=== PATIENT | female | born 1975 | race Caucasian/White ===

== ENCOUNTER 2017-03-15 12:51 | Inpatient (IN) | payer BC ==
[~2017-03-15] VITALS: Ht 172.7 cm; Wt 67.1 kg
[2017-03-15 13:45] VITALS: BP 134/74
--- NOTE | 2017-03-15 14:00 | NUR ---
42 year old FEMALE admitted to room # 403-2 for stabilization. Reports an addiction to HEROIN last used 24 hours prior to admission. Compliant with admission procedure. Patient denies any anxiety, but is unable to sit still, taps toes to floor continuously, looks about room, unable to focus eyes on nurse during interview. See assessment forms for additional information about patient status.
[2017-03-15 14:53] LABS: BASO % 0.5 % (0.0-1.0); EOS # 0.1 10*3/uL (0.0-0.4); EOS % 0.6 % (1.0-4.0); HEMOGLOBIN 13.7 g/dl (12.0-16.0); LYMPH # 3.1 10*3/uL (1.3-4.4); LYMPH % 40.5 % (27.0-41.0); MEAN CELL VOLUME 91.7 fl (81.0-99.0); MEAN CORPUSCULAR HGB 30.6 pg (27.0-31.0); MEAN CORPUSCULAR HGB CONC 33.4 g/dl (33.0-37.0); MEAN PLATELET VOLUME 10.1 fl (9.6-12.3); MONO # 0.4 10*3/uL (0.1-1.0); MONO % 4.9 % (3.0-9.0); NEUT # 4.1 10*3/uL (2.3-7.9); NEUT % 53.2 % (47.0-73.0); PLATELET COUNT AUTOMATED 323 10*3/uL (130-400); RED BLOOD COUNT 4.47 10*6/uL (4.10-5.10); RED CELL DISTRI WIDTH 15.9 % (0-14.5); WHITE BLOOD COUNT 7.8 10*3/uL (4.8-10.8)
--- NOTE | 2017-03-15 15:00 | NUR ---
PT DENIES ANY HOME MEDICATIONS.
[2017-03-15 15:05] LABS: BILIRUBIN NEGATIVE (NEGATIVE); BLOOD TRACE-INTACT (NEGATIVE); CLARITY CLEAR (CLEAR); COLOR YELLOW (YELLOW); GLUCOSE NEGATIVE (NEGATIVE); KETONE NEGATIVE (NEGATIVE); LEUKO ESTERASE NEGATIVE (NEGATIVE); NITRITE NEGATIVE (NEGATIVE); SPECIFIC GRAVITY <= 1.005 (1.005-1.030); UROBILINOGEN 0.2 E.U./dl (0.2-1.0)
[2017-03-15 15:08] LABS: ALBUMIN 3.4 gm/dl (3.1-4.5); ALKALINE PHOSPHATASE 102 U/L (45-117); BUN 7 mg/dl (7-24); CHLORIDE 107 mmol/L (98-107); CREATININE 0.81 mg/dL (0.55-1.02); POTASSIUM 3.9 mmol/L (3.5-5.1); SGOT/AST 17 IU/L (3-35); SGPT/ALT 20 U/L (12-78); SODIUM 139 mmol/L (136-145); TOTAL PROTEIN 8.7 gm/dL (6.4-8.2)
[2017-03-15 15:13] LABS: URINE AMPHETAMINES < 1000 (1000ng/ml); URINE BARBITURATES < 200 (200ng/ml); URINE BENZODIAZEPINES < 200 (200ng/ml); URINE CANNABINOIDS (THC) < 50 (50ng/ml); URINE COCAINE < 300 (300ng/ml); URINE METHADONE < 300 (300ng/ml); URINE OPIATES > 300 (300ng/ml)
[2017-03-15 15:14] LABS: URINE PHENCYCLIDINE < 25 (25ng/ml)
[2017-03-15 15:14] LABS: BETA-HCG, QUANT < 1.0 mIU/mL (1-3)
[2017-03-15 15:15] LABS: ETHYL ALCOHOL < 3.0 mg/dl (<3)
[2017-03-15 15:23] LABS: BACTERIA TRACE
--- NOTE | 2017-03-15 15:40 | NUR ---
Patient displaying withdrawal symptoms, including: irritability, anxiousness, restlessness, restless legs, abdominal upset. Scheduled/PRN medications provided. See EMAR. Will continue to monitor medication effectiveness.
--- NOTE | 2017-03-15 15:45 | NUR ---
D/C PLANNING: PATIENT WANTS TO GO TO [facility] FOR HER AFTERCARE. PATIENT WANTS OUTPATIENT. KYLE MARIE B.A. NEWS AGENT
[2017-03-15 16:00] VITALS: BP 108/67
--- NOTE | 2017-03-15 17:30 | NUR ---
Patient resting. Responding to scheduled medications with fewer complaints of pain and anxiety.
[2017-03-15 20:00] VITALS: BP 104/61
--- NOTE | 2017-03-15 20:16 | NUR ---
PATIENT AWAKE IN BED AT THIS TIME. DENIES ANY NEW/WORSENING SYMPTOMS. STATES SHE IS STILL HAVING SOME RESTLESS LEGS. REQUESTING MEDICATION TO BE BROUGHT IN WITH 2200 DOSE OF SUBUTEX. WILL MONITOR. CALL LIGHT LEFT IN REACH.
--- NOTE | 2017-03-15 20:16 | NUR ---
PATIENT AWAKE IN BED AT THIS TIME. DENIES ANY NEW/WORSENING SYMPTOMS. DOES STATE THAT SHE IS EXPERIENCING RESTLESS LEGS. REQUESTING MEDICATION. WILL MONITOR/MEDICATE PATIENT.
--- NOTE | 2017-03-15 20:40 | NUR ---
PATIENT MEDICATED WITH PO REQUIP PER PRN ORDER FOR C/O RESTLESS LEGS. WILL MONITOR EFFECTIVENESS. CALL LIGHT LEFT IN REACH.
--- NOTE | 2017-03-15 21:26 | NUR ---
PATIENT STATES EARLIER MEDICATION WAS EFFECTIVE. WILL CONTINUE TO MONITOR. CALL LIGHT IN REACH.
[2017-03-16] VITALS: BP 97/50
[2017-03-16 04:00] VITALS: BP 92/54
--- NOTE | 2017-03-16 06:05 | NUR ---
Routine Subutex given as ordered at 0000. States Requip minimally effective to decrease restless legs, but symptoms still present. Diaphoretic at this time. Denies need for any other medications at this time. Will continue to monitor withdrawal symptoms closely.
[2017-03-16 08:00] VITALS: BP 101/56
--- NOTE | 2017-03-16 08:29 | NUR ---
PT COMPLAINING OF SOME SWEATING AND DIAPHORESIS. MEDICATED WITH PRN CATAPRES AND SCHEDULED SUBUTEX. WILL MONITOR FOR EFFECTIVENESS.
--- NOTE | 2017-03-16 09:14 | NUR ---
PT STATING SHE DOESN'T FEEL LIKE THE NICOTINE PATCH IS EFFECTIVE AND IS REQUESTING THE NICOTROL INHALER. NOTIFIED DR DALTON WHO STATES HE WILL ORDER IT.
--- NOTE | 2017-03-16 10:20 | NUR ---
ASSISTED PT TO SHOWER ROOM, BED CHANGE PROVIDED AT THIS TIME. PT STATES EARLIER MEDICATIONS WERE EFFECTIVE AND SHE IS FEELING MUCH BETTER.
[2017-03-16 12:00] VITALS: BP 101/60; BP 110/68
[2017-03-16 16:00] VITALS: BP 88/52
--- NOTE | 2017-03-16 16:23 | NUR ---
PT RESTING IN BED, NO COMPLAINTS AT THIS TIME. JUST STATES SHE IS FEELING BORED AND "STIR CRAZY", ENCOURAGED PT TO WALK AROUND THE UNIT.
--- NOTE | 2017-03-16 16:30 | NUR ---
DR DALTON NOTIFIED OF PT'S BP OF 88/52, HR 47. PT'S VITALS HAVE BEEN TRENDING ON THE LOWER RANGE SINCE ADMISSION. PT IS ASYMPTOMATIC, DENIES ANY COMPLAINTS, PT IS UP TALKING AND JUST RETURNED FROM THE VENDING MACHINE. NO NEW ORDERS AT THIS TIME.
--- NOTE | 2017-03-16 18:01 | NUR ---
PT COMPLAINING OF SOME PAIN IN HER LEGS, MEDICATED WITH ROBAXIN. WILL MONITOR FOR EFFECTIVENESS.
[2017-03-16 20:00] VITALS: BP 92/58
[2017-03-17] VITALS: BP 95/50
--- NOTE | 2017-03-17 01:30 | NUR ---
Dr. Aldrich called with orders received. Requested and medicated with Trazodone to aid sleep, and Requip for restless legs. Routine Subutex given. Sitting quietly on bed. Resp easy and regular. Will continue to closely monitor withdrawal symptoms.
--- NOTE | 2017-03-17 03:37 | NUR ---
Trazodone ineffective to aid sleep, remains in bed awake. Denies need for any further medications at this time. Requip effective to decrease restless legs. Will continue to closely monitor.
--- NOTE | 2017-03-17 06:47 | NUR ---
Resting quietly in bed at this time. Resp easy and regular. Will continue to monitor.
[2017-03-17 08:11] VITALS: BP 94/50
--- NOTE | 2017-03-17 09:30 | NUR ---
IN TO GIVE PT'S SCHEDULED SUBUTEX, PT DENIES ANY COMPLAINTS AT THIS TIME, DOES HAVE A RUNNY NOSE. CLARITIN GIVEN PER ORDER. PT DENIES ANY FURTHER NEEDS.
--- NOTE | 2017-03-17 09:30 | NUR ---
DR DALTON IN TO SEE PT AT THIS TIME.
[2017-03-17 12:22] VITALS: BP 100/61
[2017-03-17 16:00] VITALS: BP 96/58
--- NOTE | 2017-03-17 16:03 | NUR ---
MEDICATED WITH ROBAXIN FOR COMPLAINTS OF LEG PAIN. WILL MONITOR FOR EFFECTIVENESS. CALL LIGHT WITHIN REACH.
--- NOTE | 2017-03-17 19:30 | NUR ---
PT. AWAKE, ALERT, AND ORIENTED X 3. PT. CURRENTLY DENIES CP, SOB, OR WITHDRAWAL SYMPTOMS AT THIS TIME. CALL LIGHT WITHIN REACH, WHEELS LOCKED, BED IN LOWEST POSITION. SEE SHIFT ASSESSMENT.
[2017-03-17 20:00] VITALS: BP 98/51
[2017-03-18] VITALS: BP 91/51
[2017-03-18 05:42] LABS: CREATININE 0.86 mg/dL (0.55-1.02)
[2017-03-18 06:24] LABS: BASO % 0.7 % (0.0-1.0); EOS # 0.1 10*3/uL (0.0-0.4); EOS % 1.7 % (1.0-4.0); HEMATOCRIT 37.8 % (37.0-47.0); HEMOGLOBIN 12.2 g/dl (12.0-16.0); LYMPH # 2.6 10*3/uL (1.3-4.4); LYMPH % 49.3 % (27.0-41.0); MEAN CORPUSCULAR HGB 30.7 pg (27.0-31.0); MEAN CORPUSCULAR HGB CONC 32.3 g/dl (33.0-37.0); MEAN PLATELET VOLUME 10.6 fl (9.6-12.3); MONO # 0.5 10*3/uL (0.1-1.0); MONO % 9.3 % (3.0-9.0); NEUT # 2.1 10*3/uL (2.3-7.9); PLATELET COUNT AUTOMATED 302 10*3/uL (130-400); RED BLOOD COUNT 3.98 10*6/uL (4.10-5.10); RED CELL DISTRI WIDTH 15.8 % (0-14.5); WHITE BLOOD COUNT 5.4 10*3/uL (4.8-10.8)
[2017-03-18 08:00] VITALS: BP 104/65
--- NOTE | 2017-03-18 08:17 | NUR ---
PRN BENTYL GIVEN FOR ABDOMINAL CRAMPS, PRN REQUIP GIVEN FOR RESTLESS LEG.
--- NOTE | 2017-03-18 08:17 | NUR ---
INFLUENZA VACCINE GIVEN.
--- NOTE | 2017-03-18 09:17 | NUR ---
PRN MEDICATIONS EFFECTIVE , PT DENIES ABDOMINAL DISCOMFORT AND RESTLESSNESS TO HERE LEGS.
--- NOTE | 2017-03-18 13:02 | NUR ---
D/C PLAN: PATIENT IS SET UP WITH APPOINTMENT WITH [facility]. PATIENT UNDERSTANDS AND AGREES TO AFTERCARE PLAN. KYLE MARIE B.A. [employer]ATHER TACKER
--- NOTE | 2017-03-18 14:02 | NUR ---
Discharge instructions reviewed with patient/family. Patient receptive and verbalizes understanding. Follow-up care arranged. Written instructions given to patient/family. CÉSAR WILSON
== END 2017-03-18 14:02 | disposition home or self-care (01) | DRG 897 ==
LOC: 4E 12:51
PROVIDERS: Registered Nurse; ADMIT Emergency Medicine
DX: F11.23 Opioid dependence with withdrawal (principal); E44.0 Moderate protein-calorie malnutrition; F31.9 Bipolar disorder, unspecified; F14.10 Cocaine abuse, uncomplicated; F12.10 Cannabis abuse, uncomplicated; Z72.0 Tobacco use; Z90.49 Acquired absence of other specified parts of digestive tract; Z98.51 Tubal ligation status; Z83.3 Family history of diabetes mellitus; Z68.22 Body mass index [BMI] 22.0-22.9, adult